=== PATIENT | male | born 1945 | race Caucasian/White ===

== ENCOUNTER → 2017-05-15 | Outpatient (CLI) | payer OTHER | LOC: FIMAGING 16:57 | PROVIDERS: ATTEND Family Medicine | DX: M46.92 Unspecified inflammatory spondylopathy, cervical region (principal); M47.892 Other spondylosis, cervical region ==

== ENCOUNTER → 2017-05-28 | Outpatient (CLI) | payer OTHER ==
[~2017-05-28] MED LIST: GADOBUTROL 10 ML VIAL IVP ONE
[2017-05-28 10:33] LABS: GLOMERULAR FILTRATION RATE > 60
== END ==
LOC: FIMAGING 09:45
PROVIDERS: ATTEND Family Medicine
DX: M99.71 Connective tissue and disc stenosis of intervertebral foramina of cervical region (principal); M12.88 Other specific arthropathies, not elsewhere classified, other specified site; M89.38 Hypertrophy of bone, other site
CPT/HCPCS: 72156; A9585

== ENCOUNTER → 2017-06-02 | Outpatient (CLI) | payer OTHER | LOC: FIMAGING 11:48 | PROVIDERS: ATTEND Family Medicine | DX: M25.552 Pain in left hip (principal); Z96.642 Presence of left artificial hip joint; M16.11 Unilateral primary osteoarthritis, right hip ==

== ENCOUNTER → 2017-08-28 | Outpatient (CLI) | payer OTHER | LOC: FIMAGING 12:16 | PROVIDERS: ATTEND Family Medicine | DX: Z13.820 Encounter for screening for osteoporosis (principal); M25.552 Pain in left hip ==

== ENCOUNTER 2018-04-16 19:57 | Emergency (ER) | payer OTHER ==
[2018-04-16] MEDS ORDERED: IPRATROPIUM/ALBUTEROL 3 ML DEYVIAL ONE (20:12)
--- NOTE | 2018-04-16 20:12 | CPEKG ---
Heart Rate: 90 RR Interval: 667 P-R Interval: 208 QRSD Interval: 86 QT Interval: 320 QTC Interval: 392 P [place]: 82 QRS [place]: 83 T Wave [place]: 53 EKG Severity - BORDERLINE ECG - EKG Impression: SINUS RHYTHM EKG Impression: LOW VOLTAGE IN FRONTAL LEADS Electronically Signed By: Cleveland Martinez 18-Apr-2018 11:59:22
[2018-04-16] MEDS ORDERED: IPRATROPIUM/ALBUTEROL 3 ML DEYVIAL IH ONE (20:14)
--- NOTE | 2018-04-16 20:28 | EDPHY ---
H & P Stated Complaint: ? Aspirated, Short of Breath, Hx Stroke. Time Seen by Provider: 04/16/18 20:04 HPI/ROS: CHIEF COMPLAINT: Short of breath HISTORY OF PRESENT ILLNESS: This is a 73-year-old male who is status post CVA in 1999. This occurred while he was flying on an airplane. The stroke occurred in conjunction with a myocardial infarction. He underwent CABG. He is currently on Plavix. He has some residual right foot weakness and difficulty with balance and coordination. Per his , it sounds as if he also has occasional difficulty with swallowing. Tonight he was eating and choked on a bite of steak meat. With choking and gagging he was able to dislodge the bite, but he has had trouble breathing since then. This occurred about an hour ago. He feels as if he can't fully expand his lungs and take in air. He had asthma as a child and states that this feels similar to an asthma attack. He does not have any neck or chest pain and does not have a foreign body sensation. He is able to swallow his saliva. He is speaking in full sentences without difficulty. He was well prior to this event. REVIEW OF SYSTEMS: A ten point review of systems was performed and is negative with the exception of the items mentioned in the HPI. Past medical history: 1. CVA 1999 2. Coronary artery disease status post CABG 1999 3. Reactive airway disease as a child Past surgical history: CABG Social history: He is a retired director revenue. He is . He does not use tobacco products. He drinks 2 beers daily. General Appearance: Alert. Vital signs reviewed. Room air pulse ox 83%. Blood pressure 146/76 Eyes: Pupils equal and round, no conjunctival injection, no discharge. Anicteric. ENT, Mouth: Mucous membranes are moist, no oropharyngeal erythema or edema. No visible foreign body. Neck: No lymphadenopathy, supple. Trachea midline. Respiratory: Lungs are clear to auscultation; no wheezes, rales, or rhonchi. Cardiovascular: Regular rate and rhythm; no murmur, rub, or gallop. Gastrointestinal: Abdomen is soft and nontender, no masses or organomegaly, bowel sounds normal. Skin: Warm and dry, no rashes on exposed skin, normal color. Back: Nontender to palpation over the thoracolumbar spine. No CVAT. Extremities: No lower extremity edema, no calf tenderness or swelling. Neurological: Alert and oriented. Moving all four extremities easily and equally. He walks with hiking sticks for assistance. Psychiatric: Normal affect. - Personal History Current Tetanus/Diphtheria Vaccine: Yes Current Tetanus Diphtheria and Acellular Pertussis (TDAP): Yes Tetanus Vaccine Date: 2016 - Medical/Surgical History Hx Asthma: Yes Hx Chronic Respiratory Disease: No Hx Diabetes: No Hx Cardiac Disease: No Hx Renal Disease: No Hx Cirrhosis: No Hx Alcoholism: No Hx HIV/AIDS: No Hx Splenectomy or Spleen Trauma: No Other PMH: Lt total hip, [place] and Stroke at same time- CABG, rt foot weakness. Cataract, takes Plavix, asthma. - Social History Smoking Status: Never smoked Constitutional: Initial Vital Signs Temperature (C) 36.6 C 04/16/18 20:00 Heart Rate 85 04/16/18 20:00 Blood Pressure 146/76 H 04/16/18 20:00 O2 Sat (%) 83 L 04/16/18 20:00 O2 Delivery Mode Humidified O2 (L/minute) 2 Allergies/Adverse Reactions: aspirin [Aspirin] Allergy (Severe, Verified 04/16/18 20:22) Dyspnea ibuprofen Allergy (Severe, Verified 04/16/18 20:22) Dyspnea Home Medications: Medication Instructions Recorded Clopidogrel Bisulfate [Plavix] 75 mg PO DAILY 01/16/12 Fluticasone Nasal [Flonase Nasal 2 sprays NASAL DAILY 01/16/12 [place]] Hydrocodone Bit/Acetaminophen 1 tab PO Q4-6PRN PRN 01/16/12 [Vicodin 5/500] Hydrocodone Bit/Acetaminophen 1 tab PO Q4-6PRN PRN #15 tab 01/16/12 [Vicodin 5/500] TESTOSTERONE [Androgel] 2.5 gm TD 01/16/12 Hydrocodone/APAP 5/325 [[place] 1 - 2 tab PO Q4 PRN #30 tab 03/28/14 5/325 (RX)] Zocor 04/16/18 Medical Decision Making - Diagnostics EKG Interpretation: 12 lead EKG is interpreted in Trace master View by emergency department physician. No acute ischemic changes. Imaging Results: Imaging Impressions Chest X-Ray 04/16/18 20:16 Impression: 1. Prior coronary bypass. 2. Left lower lobe pneumatocele again noted. 3. Minimal atelectasis or scarring in the left lower lobe. 4. No definite pneumonia. 5. No pneumothorax. Findings and recommendations discussed with Emergency Department physician, SOFY STOCKTON at 20:49 hour, 04/16/2018. Final report concurs with initial preliminary interpretation. ED Course/Re-evaluation: Patient was started on nasal cannula oxygen immediately upon arrival. His room air pulse ox 83%. With nasal cannula oxygen at 4L his pulse ox was still in the mid to high 80s. He was not tachypneic. Lungs were clear. He was given a DuoNeb which improved his oxygenation and, per his report, made him feel better. Chest x-ray was reviewed by me. I spoke with Dr. Lozano about the x-ray also. There is no evidence of pneumonia or pneumothorax. He does have a pneumatocele in the left lower lobe that was seen on an x-ray in 2004. There is nothing to indicate air trapping or bronchial foreign body. Blood work was sent. Troponin, BNP, and CBC are normal. His sodium is slightly low 131. This patient was serially and frequently examined while in the department. My initial concern was for tracheal/bronchial foreign body. Pneumothorax was also another concern. He has not recently been ill and had no signs or symptoms of pneumonia so pneumonia was relatively low in my differential. He has a history of reactive airway disease as a child. He tells me that he carried an albuterol inhaler until he was 47. After being started on Flonase he stopped having any problems with reactive airways. He tells me that tonight's episode felt much like his previous asthma attacks. He he wonders if the choking and sputtering might have triggered an airway reaction. This seems like a reasonable consideration to me. During his stay in the emergency department his oxygenation gradually improved. He was taken off oxygen and maintained oxygen saturations of 90-91%, even while speaking. He was given an albuterol treatment. Oxygenation after that was in the low to mid 90s. When he arrived I thought that he was likely going to need hospitalization. He has significantly improved and I feel that he can safely return home, which he very much desires to do. Both he and his were comfortable returning home. They will call 911 should he develop further difficulties breathing. He is given an albuterol meter dose inhaler to use if needed. I recommended follow up with his primary care physician. We discussed the advisability of a swallowing study. - Data Points Laboratory Results: Laboratory Results 04/16/18 20:15 04/16/18 20:15 04/16/18 04/16/18 04/16/18 20:15 20:15 20:15 WBC 8.13 10^3/uL 10^3/uL (3.80-9.50) RBC 4.78 10^6/uL 10^6/uL (4.40-6.38) Hgb 16.2 g/dL g/dL (13.7-17.5) Hct 45.6 % % (40.0-51.0) MCV 95.4 fL fL (81.5-99.8) MCH 33.9 pg pg (27.9-34.1) MCHC 35.5 g/dL g/dL (32.4-36.7) RDW 12.3 % % (11.5-15.2) Plt Count 260 10^3/uL 10^3/uL (150-400) MPV 9.0 fL fL (8.7-11.7) Neut % (Auto) 51.3 % % (39.3-74.2) Lymph % (Auto) 28.5 % % (15.0-45.0) Mccreary % (Auto) 13.5 % H % (4.5-13.0) Eos % (Auto) 6.0 % % (0.6-7.6) Baso % (Auto) 0.5 % % (0.3-1.7) Nucleat RBC Rel Count 0.0 % % (0.0-0.2) Absolute Neuts (auto) 4.16 10^3/uL 10^3/uL (1.70-6.50) Absolute Lymphs (auto) 2.32 10^3/uL 10^3/uL (1.00-3.00) Absolute Monos (auto) 1.10 10^3/uL H 10^3/uL (0.30-0.80) Absolute Eos (auto) 0.49 10^3/uL H 10^3/uL (0.03-0.40) Absolute Basos (auto) 0.04 10^3/uL 10^3/uL (0.02-0.10) Absolute Nucleated RBC 0.00 10^3/uL 10^3/uL (0-0.01) Immature Gran % 0.2 % % (0.0-1.1) Immature Gran # 0.02 10^3/uL 10^3/uL (0.00-0.10) D-Dimer 0.35 ug/mLFEU ug/mLFEU (0.00-0.50) Sodium 131 mEq/L L mEq/L (135-145) Potassium 4.1 mEq/L mEq/L (3.3-5.0) Chloride 95 mEq/L L mEq/L (97-110) Carbon Dioxide 23 mEq/l mEq/l (22-31) Anion Gap 13 mEq/L mEq/L (8-16) BUN 15 mg/dL mg/dL (7-23) Creatinine 1.0 mg/dL mg/dL (0.7-1.3) Estimated GFR > 60 Glucose 77 mg/dL mg/dL (70-100) Calcium 9.0 mg/dL mg/dL (8.5-10.4) Troponin I < 0.012 ng/mL ng/mL (0.000-0.034) NT-Pro-B Natriuret Pep 67 pg/mL pg/mL (0-125) Medications Given: Discontinued Medications Albuterol (Proventil Neb) 3 ml IH EDNOW ONE Stop: 04/16/18 21:38 Last Admin: 04/16/18 21:40 Dose: 3 ml Albuterol/Ipratropium (Duoneb) 3 ml IH EDNOW ONE Stop: 04/16/18 20:15 Last Admin: 04/16/18 20:15 Dose: 3 ml Departure - Departure Clinical Impression: Reactive airway disease that is not asthma Condition: Good Instructions: Albuterol (By breathing), Performing the Heimlich Maneuver (ED), Reactive Airways Disease (ED) Additional Instructions: It is not entirely clear what caused you to become short of breath after choking on meat. You improved greatly while in the emergency department--if you become short of breath after returning home you should use the albuterol inhaler and call 911. Be on the lookout for any signs of pneumonia--fever, cough, fatigue, trouble breathing. Please follow up this week with your primary care doctor. Talk with him about whether or not he recommends a swallowing study. Let him know about tonight's visit. Referrals: Hipolito Medina, [Primary Care Provider] - As per Instructions
[2018-04-16 20:37] LABS: PLATELET COUNT 260 10^3/uL (150-400)
[2018-04-16] MEDS ORDERED: ALBUTEROL 3 ML DEYVIAL IH ONE (21:37)
[2018-04-16 21:49] VITALS: BP 125/64
[2018-04-16] MEDS ORDERED: ALBUTEROL INH PREPACK MDI TAKEHOME ONE (21:57)
== END 2018-04-16 22:13 | disposition home or self-care (01) ==
LOC: CED 19:57
DX: J98.8 Other specified respiratory disorders (principal); I25.810 Atherosclerosis of coronary artery bypass graft(s) without angina pectoris; I25.2 Old myocardial infarction; J45.909 Unspecified asthma, uncomplicated; Z86.73 Personal history of transient ischemic attack (TIA), and cerebral infarction without residual deficits
CPT/HCPCS: 71046; 93005; 99285; J7613; 80048-PO; 83880-PO; 84484-PO; 85025-PO; 85378-PO

== ENCOUNTER 2018-04-23 12:35 | Emergency (ER) | payer OTHER ==
--- NOTE | 2018-04-23 13:50 | EDPHY ---
H & P Time Seen by Provider: 04/23/18 13:29 HPI/ROS: HPI Head injury. 73-year-old male by private vehicle. This patient has a history of a stroke. He ambulates with 2 walking sticks. He was at home. He was going to the bathroom. He was not using his walking sticks. He leaned over to grab the railing next to his toilet missed this railing with his hand fell down struck the back of his head on a banister post. He did not lose consciousness. He states that he hit his head pretty hard though and was days. He sustained a laceration to the right side posterior aspect of his scalp. He denies neck pain. Denies any significant headache at this time. No loss of sensation or weakness in his extremities. Denies any extremity pain. No other complaints. He is on Plavix. ROS: Constitutional: No fever, no chills. No weakness. Eyes: No discharge. No changes in vision. ENT: No sore throat. No nasal congestion or rhinorrhea. Respiratory: No cough. No shortness of breath. Cardiac: No chest pain, no palpitations. Gastrointestinal: No abdominal pain, no vomiting, no diarrhea. Genitourinary: No hematuria. No dysuria or increased frequency with urination. Musculoskeletal: No back pain. No neck pain. As above. Skin: No rashes. As above. Neurological: As above. No focal weakness or altered sensation. Past medical history: Left total hip replacement. [place] and stroke at the same time. CABG, residual right lower extremity weakness from stroke, asthma. As above. Social history: Nonsmoker. Currently here by himself. No alcohol. Physical Exam: General Appearance: Alert, no distress. This patient is responding to questions appropriately and in full sentences. This patient appears well- hydrated and well-nourished. Head: Normocephalic atraumatic except for a right posterior parietal scalp hematoma and associated non gaping linear scalp laceration measuring approximately 3 cm. Face: Facial bones are stable on palpation. Eyes: Pupils equal and round and reactive to light, no pallor or injection. No lid erythema or edema. Respiratory: There are no retractions, lungs are clear to auscultation with good air movement bilaterally. Chest wall is stable to AP and lateral palpation. Cardiovascular: Regular rate and rhythm. No murmur. Neurological: Motor sensory function is intact. Cranial nerves are normal. Cerebellar function intact. Skin: Warm and dry, no rashes. No lacerations, abrasions or contusions. Musculoskeletal: Neck is supple and nontender. The trachea is midline. No midline cervical, thoracic, lumbar or sacral tenderness on palpation. No flank tenderness on palpation. Extremities are symmetrical, full range of motion. All joints in the bilateral upper and bilateral lower extremities range without pain or impingement. No tenderness on palpation of the long bones in the bilateral upper and bilateral lower extremities. Psychiatric: No agitation. No depression. Database: EKG: Imaging: CT head without contrast: Significant for a right-sided posterior parietal scalp laceration and hematoma. Otherwise a negative study. No intracranial bleeding. No skull fracture. Results were discussed with staff radiologist Dr. Joo Meraz. Procedures: Procedure: Laceration repair. Verbal consent was obtained from the patient. The 3 cm linear non gaping laceration on the right posterior parietal was anesthetized in the usual fashion. The wound was irrigated, draped and explored to its base with a gloved finger. There were no deep structures involved. No foreign body was identified. The wound was repaired with 6 percutaneous surgical tiffany. The wound repair was tolerated well and there were no complications. The procedure was performed by myself. Emergency department course: Triage vital signs reviewed and are normal. Patient consents for CT imaging of his head. After wound care as above head injury precautions reviewed with the patient. He is ambulating appropriately is baseline gait in the emergency department. No new neurologic deficits. He feels comfortable going home and I feel he is safe for discharge. Follow-up and return to emergency department precautions reviewed with him. All of his questions were answered. He was discharged from the emergency department in good condition. Differential Diagnosis: The differential diagnosis on this patient includes but is not limited to minor head injury, scalp laceration. Skull fracture, cervical spine injury, intracranial bleed, other significant traumatic injury unlikely. This represents a partial list of diagnoses considered. These considerations are based on history, physical exam, past history, reassessment and diagnostic testing. Smoking Status: Never smoked Constitutional: Initial Vital Signs Temperature (C) 36.5 C 04/23/18 12:51 Heart Rate 87 04/23/18 12:51 Respiratory Rate 16 04/23/18 12:51 Blood Pressure 115/77 04/23/18 12:51 O2 Sat (%) 96 04/23/18 12:51 O2 Delivery Mode Room Air Allergies/Adverse Reactions: aspirin [Aspirin] Allergy (Severe, Verified 04/23/18 12:49) Dyspnea ibuprofen Allergy (Severe, Verified 04/23/18 12:49) Dyspnea Home Medications: Medication Instructions Recorded Clopidogrel Bisulfate [Plavix] 75 mg PO DAILY 01/16/12 Fluticasone Nasal [Flonase Nasal 2 sprays NASAL DAILY 01/16/12 [place]] Hydrocodone Bit/Acetaminophen 1 tab PO Q4-6PRN PRN 01/16/12 [Vicodin 5/500] TESTOSTERONE [Androgel] 2.5 gm TD 01/16/12 Zocor 04/16/18 Cialis 04/23/18 Medical Decision Making - Diagnostics Imaging Results: Imaging Impressions Head CT 04/23/18 13:34 Impression: Small right posterior parietal scalp hematoma. Otherwise negative. Specifically no evidence for acute intracranial hemorrhage. Results called to Dr. Baeza at 2:05 PM General information for patients regarding this examination can be found at [email or web address]. If you have questions or comments about this report, please contact me at (hospital) or [phone] (cell). Departure - Departure Disposition: Home, Routine, Self-Care Clinical Impression: Head injury, Scalp laceration Condition: Good Instructions: Laceration (ED), Head Injury (ED) Additional Instructions: Read and follow provided instructions. Follow-up with your primary care physician in 1-2 days for re-evaluation as needed. Continue taking your medication as prescribed. Return to the emergency department for worsening headache, confusion, nausea and vomiting or other serious concerns. Scalp tiffany are to be removed in 10 days. You can return to the emergency department and we will do that here. Referrals: Hipolito Medina DO [Primary Care Provider] - As per Instructions
[2018-04-23 15:13] VITALS: BP 103/66
== END 2018-04-23 15:13 | disposition home or self-care (01) ==
PROC: 0HQ0XZZ Repair Scalp Skin, External Approach (ICD-10-PCS; principal; 2018-04-23)
DX: S01.01XA Laceration without foreign body of scalp, initial encounter (principal); J45.909 Unspecified asthma, uncomplicated; I25.2 Old myocardial infarction; Z95.1 Presence of aortocoronary bypass graft; W01.198A Fall on same level from slipping, tripping and stumbling with subsequent striking against other object, initial encounter; Y92.002 Bathroom of unspecified non-institutional (private) residence as the place of occurrence of the external cause; Y99.8 Other external cause status; Y93.01 Activity, walking, marching and hiking

== ENCOUNTER → 2019-01-19 | Outpatient (CLI) | payer OTHER | LOC: FIMAGING 11:49 ==